=== PATIENT | male | born 1965 | race Caucasian/White ===

== ENCOUNTER 2019-02-25 09:37 | Emergency (ER) | payer MEDICAID, OTHER ==
[~2019-02-25] VITALS: Ht 175.3 cm; Wt 81.9 kg
[2019-02-25 09:39] VITALS: BP 156/100
[2019-02-25] MEDS ORDERED: LIDOCAINE-MPF 1%, 5ML ONE (10:19)
[2019-02-25] MEDS ORDERED: LIDOCAINE-MPF 1%, 5ML INFIL ONE (10:30)
== END 2019-02-25 10:51 | disposition home or self-care (01) ==
LOC: ED 10:35
DX: L02.414 Cutaneous abscess of left upper limb (principal); F31.9 Bipolar disorder, unspecified; Z72.9 Problem related to lifestyle, unspecified
CPT/HCPCS: 10060; 99283

== ENCOUNTER 2019-02-27 09:03 | Emergency (ER) | payer MEDICAID ==
[~2019-02-27] VITALS: Ht 175.3 cm; Wt 80.5 kg
[2019-02-27 09:10] VITALS: BP 137/98
--- NOTE | 2019-02-27 09:24 | NUR ---
WOUND REPACKED BY ERP
--- NOTE | 2019-02-27 09:24 | NUR ---
WOUND IMPROVED FROM 2 DAYS AGO WITH LESS SWELLING AND ERYTHEMA. PT TO BE SEEN FOR RECHECK AGAIN IN TWO DAYS. PACKING PROVIDED TO PT.
[2019-02-27] MEDS ORDERED: KETOROLAC 30 MG/1 ML ONE (09:25)
[2019-02-27] MEDS ORDERED: KETOROLAC 30 MG/1 ML IM ONE (09:30)
== END 2019-02-27 09:38 | disposition home or self-care (01) ==
LOC: ED 09:25
DX: L02.414 Cutaneous abscess of left upper limb (principal); F31.9 Bipolar disorder, unspecified; Z72.9 Problem related to lifestyle, unspecified
CPT/HCPCS: 96372; 99283; J1885

== ENCOUNTER 2019-03-01 10:48 | Emergency (ER) | payer MEDICAID ==
[~2019-03-01] VITALS: Ht 175.3 cm; Wt 80.5 kg
[2019-03-01 10:50] VITALS: BP 130/87
== END 2019-03-01 11:23 | disposition home or self-care (01) ==
LOC: ED 11:11
DX: L02.414 Cutaneous abscess of left upper limb (principal)
CPT/HCPCS: 99281

== ENCOUNTER 2019-07-22 15:55 | Emergency (ER) | payer MEDICAID ==
[~2019-07-22] VITALS: Ht 175.3 cm; Wt 83.6 kg
[2019-07-22 15:56] VITALS: BP 159/89
[2019-07-22] MEDS ORDERED: HYDROmorphone 1 MG/ML, 1ML INJ IM ONE (16:30)
[2019-07-22] MEDS ORDERED: KETOROLAC 30 MG/1 ML IM ONE (16:30)
[2019-07-22] MEDS ORDERED: KETOROLAC 60 MG/2 ML ONE (16:40)
[2019-07-22] MEDS ORDERED: HYDROmorphone 1 MG/ML, 1ML INJ ONE (16:41)
== END 2019-07-22 17:36 ==
LOC: ED 16:38
DX: M54.5 Low back pain (principal); G89.29 Other chronic pain; F17.200 Nicotine dependence, unspecified, uncomplicated
CPT/HCPCS: 72131; 96372; 99284; J1170; J1885

== ENCOUNTER 2020-04-20 10:28 | Emergency (ER) | payer MEDICAID ==
[~2020-04-20] VITALS: Ht 175.3 cm; Wt 78.2 kg
--- NOTE | 2020-04-20 11:20 | NUR ---
PT BACK FROM XRAY.
[2020-04-20 11:41] VITALS: BP 132/86
--- NOTE | 2020-04-20 12:03 | NUR ---
SLING PLACED BY EDTA, PT GIVEN DC INSTRUCTIONS AND SCRIPT, EDUCATED REGARDING RX FOR LIDOCAINE AND NAPROXEN. PT A&O, RESPS EVEN AND UNLABORED, PT AMBULATORY TO DC DESK WITH STEADY GAIT, NADN AT DC.
== END 2020-04-20 12:03 | disposition home or self-care (01) ==
LOC: ED 11:41
DX: M25.511 Pain in right shoulder (principal); F11.10 Opioid abuse, uncomplicated; F17.210 Nicotine dependence, cigarettes, uncomplicated
CPT/HCPCS: 99283; 99406

== ENCOUNTER 2020-09-03 20:31 | Emergency (ER) | payer MEDICAID ==
[~2020-09-03] VITALS: Ht 177.8 cm; Wt 76.1 kg
--- NOTE | 2020-09-03 20:40 | NUR ---
SLAB WORKER: EKG DONE IN TRIAGE
[2020-09-03] MEDS ORDERED: METHOCARBAMOL 750 MG TABLET PO ONE (21:00)
[2020-09-03] MEDS ORDERED: METHOCARBAMOL 750 MG TABLET ONE (21:07)
[2020-09-03 21:14] LABS: BASOPHILS % (AUTO) 3 % (0-1); EOSINOPHILS % (AUTO) 2 % (1-7); LYMPHOCYTES % (AUTO) 15 % (22-44); MEAN CORPUSCULAR HEMOGLOBIN 30.5 pg (27.5-34.5); MEAN CORPUSCULAR HGB CONC 33.4 g/dL (33.2-36.2); MEAN PLATELET VOLUME 7.2 fL (7.4-10.4); MONOCYTES % (AUTO) 6 % (2-9); NEUTROPHILS % (AUTO) 74 % (42-75); PLATELET COUNT 320 x10^3/uL (130-400); RED CELL DISTRIBUTION WIDTH 13.8 % (9.4-14.8)
[2020-09-03 21:16] LABS: MD NO
[2020-09-03 21:25] LABS: ALANINE AMINOTRANSFERASE 251 U/L (12-78); ALBUMIN 3.6 g/dL (3.4-5.0); ANION GAP 6 mmol/L (5-15); CALCIUM 8.5 mg/dL (8.5-10.1); CHLORIDE 110 mmol/L (98-107); CREATININE 1.15 mg/dL (0.7-1.3)
[2020-09-03 21:29] LABS: ALKALINE PHOSPHATASE 100 U/L (45-117); BILIRUBIN,TOTAL 0.6 mg/dL (0.2-1.0); TOTAL PROTEIN 7.1 g/dL (6.4-8.2); TROPONIN I < 0.015 ng/mL (0.000-0.045)
[2020-09-03 22:19] VITALS: BP 107/66
--- NOTE | 2020-09-03 22:21 | NUR ---
Pt dc'd with written and verbal instrcutions, pt states understanding. Pt given taxi voucher. pt ambultory out of ed without difficulty.
== END 2020-09-03 22:23 | disposition home or self-care (01) ==
LOC: ED 21:53
DX: S39.012A Strain of muscle, fascia and tendon of lower back, initial encounter (principal); S29.012A Strain of muscle and tendon of back wall of thorax, initial encounter; R42 Dizziness and giddiness; R07.9 Chest pain, unspecified; R51.9 Headache, unspecified; R94.31 Abnormal electrocardiogram [ECG] [EKG]; Z87.891 Personal history of nicotine dependence; W01.0XXA Fall on same level from slipping, tripping and stumbling without subsequent striking against object, initial encounter; Y93.89 Activity, other specified; Y92.89 Other specified places as the place of occurrence of the external cause; Y99.8 Other external cause status
CPT/HCPCS: 36415; 71045; 72072; 72110; 80053; 84484; 85025; 93005; 99285

== ENCOUNTER 2021-04-18 12:29 | Emergency (ER) | payer MEDICAID ==
[~2021-04-18] VITALS: Ht 175.3 cm; Wt 81.0 kg
[2021-04-18 12:32] VITALS: BP 154/95
--- NOTE | 2021-04-18 15:00 | NUR ---
NILX1.
--- NOTE | 2021-04-18 16:00 | NUR ---
TASK RN: NO ANSWERX2 FROM [facility] AT THIS TIME.
--- NOTE | 2021-04-18 16:15 | NUR ---
TASK RN: NO ANSWER FROM NEER[facility] Yo AT THIS TIME
== END 2021-04-18 16:18 | disposition left against medical advice (07) ==
LOC: ED 12:34
DX: M79.10 Myalgia, unspecified site (principal); Z20.822 Contact with and (suspected) exposure to COVID-19
CPT/HCPCS: 99283; U0003; U0005